=== PATIENT | male | born 2005 | race Caucasian/White ===

== ENCOUNTER 2024-07-04 07:57 | Outpatient (CLI) | payer OTHER, SELFPAY | END 2024-07-04 07:58 | disposition home or self-care (01) | LOC: NFLDREF 07-09 07:21 | PROVIDERS: PCP Family Medicine; Referring Provider Family Medicine; Visit Provider Family Medicine | DX: Z13.1 Encounter for screening for diabetes mellitus (principal); Z13.220 Encounter for screening for lipoid disorders | CPT/HCPCS: 80061; 82947 ==

== ENCOUNTER 2024-07-22 07:41 | Outpatient (CLI) | payer OTHER, SELFPAY | END 2024-07-22 07:42 | disposition home or self-care (01) | LOC: NFLDREF 07:42 | PROVIDERS: PCP Family Medicine; Visit Provider Family Medicine | DX: Z00.00 Encounter for general adult medical examination without abnormal findings (principal); R63.5 Abnormal weight gain; E78.5 Hyperlipidemia, unspecified; E66.9 Obesity, unspecified | CPT/HCPCS: 84439; 84443 ==